=== PATIENT | male | born 1940 | race Caucasian/White ===

== ENCOUNTER 2019-09-05 17:04 | Inpatient (IN) ==
[2019-09-05] MEDS ORDERED: Isovue-370 500 ML BOTTLE IVP ONE (17:16)
[2019-09-05 18:10] LABS: Basophils % 0.2 %; Eosinophils # 0.2 K/mcL (0.0-0.6); Eosinophils % 1.3 %; Hematocrit 40.7 % (37.5-50.1); Hemoglobin 13.6 g/dL (12.9-16.9); Immature Granulocytes % 0.4 % (0-4); Lymphocytes # 1.9 K/mcL (0.6-4.6); Lymphocytes % 15.6 %; Mean Corpuscular HGB Conc 33.4 g/dL (31.6-35.5); Mean Corpuscular Hemoglobin 28.5 pg (28.0-33.3); Mean Corpuscular Volume 85.1 fL (83.0-100.0); Mean Platelet Volume 10.1 fL (9.4-12.4); Monocytes # 1.4 K/mcL (0.0-1.3); Neutrophils # 8.5 K/mcL (1.6-8.9); Platelet Count 231 K/mcL (140-400); Red Blood Count 4.78 M/mcL (4.19-5.50); Red Cell Distribution Width 13.7 % (11.5-14.5); Segmented Neutrophils % 70.5 %
[2019-09-05 18:28] LABS: Alanine Aminotransferase 49 Units/L (7-52); Albumin 3.7 g/dL (3.5-5.7); Albumin/Globulin Ratio 1.2 (1.1-2.2); Alkaline Phosphatase 64 Units/L (34-104); Aspartate Amino Transferase 32 Units/L (13-39); BUN/Creatinine Ratio 24 (6-26); Bilirubin,Total 0.5 mg/dL (0.3-1.0); Blood Urea Nitrogen 36 mg/dL (8-23); Calcium 9.3 mg/dL (8.6-10.3); Carbon Dioxide 23 mEq/L (23-29); Chloride 108 mEq/L (98-107); Globulin 3.1 g/dL (2.4-3.5); Glucose 175 mg/dL (70-105); Osmolality,Calculated 301 (280-300); Potassium 4.4 mEq/L (3.5-5.1); Sodium 139 mEq/L (136-145); Total Protein 6.8 g/dL (6.4-8.9); eGFR For African Americans 55 (> 60); eGFR For Non-African Americans 45 (> 60)
[2019-09-05 18:29] LABS: Troponin I < 0.03 ng/mL (< 0.04)
[2019-09-05 19:18] LABS: Bilirubin,Urine Small (Negative); Blood,Urine Moderate (Negative); Clarity,Urine Clear (Clear); Color,Urine Dark Yellow (Yellow); Glucose,Urine (UA) Normal (Normal); Ketones,Urine Trace mg/dL (Negative); Leukocyte Esterase,Urine Negative (Negative); Nitrite,Urine Negative (Negative); PH,Urine 5.5 pH Units (5.0-8.0); Protein,Urine 30 mg/dL (Neg-Trace); Urobilinogen,Urine Normal (Normal)
[2019-09-05] MEDS ORDERED: 0.9 % Sodium Chloride 1,000 ML IVC ONE (19:22)
[2019-09-05 19:23] LABS: Bacteria,Urine None Seen per hpf (None-Few); Hyaline Casts,Urine None Seen per lpf (None-Few); RBC,Urine 30-50 per hpf (0-3); Squamous Epithelial Cell,Urine None Seen per lpf (None-Few); WBC,Urine 0-3 per hpf (0-3)
[2019-09-05 20:03] LABS: Valproate 13 mcg/mL (50-100)
[2019-09-05] MEDS ORDERED: Valproic Acid INJ 1,000 MG in 0.9 % Sodium Chloride 100 ML IVPB ONE (20:45)
[2019-09-05] MEDS ORDERED: D5% in Water 1,000 ML IVC PRN (21:18)
[2019-09-05] MEDS ORDERED: Dextrose Gel 15 GM/37.5 ML TUBE PO PRN ×2 (21:18)
[2019-09-05] MEDS ORDERED: Ondansetron ODT 4 MG TAB.RAPDIS SL PRN (21:18)
[2019-09-05] MEDS ORDERED: Naloxone 0.4 MG/ML INJ IVP PRN (21:18)
[2019-09-05] MEDS ORDERED: *HR* Dextrose 50 % in Water (Syg) 50 ML SYRINGE IVP PRN (21:18)
[2019-09-05 22:19] LABS: ABG Base Excess -3 mEq/L (-2 to 3); ABG HCO3 25 mEq/L (21-27); ABG Oxygen Saturation 90 % (95-98); ABG PCO2 57 mmHg (35-45); ABG PH 7.25 pH Units (7.32-7.45); ABG PO2 70 mmHg (85-104); ABG TCO2 27 mEq/L (20-26)
[2019-09-06] MEDS ORDERED: Insulin LISPRO 300 UNITS/3 ML VIAL SQ SCH
[2019-09-06 02:37] LABS: Basophils % 0.3 %; Eosinophils # 0.2 K/mcL (0.0-0.6); Eosinophils % 1.3 %; Hematocrit 38.8 % (37.5-50.1); Hemoglobin 12.4 g/dL (12.9-16.9); Immature Granulocytes % 0.5 % (0-4); Lymphocytes # 1.5 K/mcL (0.6-4.6); Lymphocytes % 13.3 %; Mean Corpuscular Hemoglobin 28.2 pg (28.0-33.3); Mean Corpuscular Volume 88.4 fL (83.0-100.0); Mean Platelet Volume 10.1 fL (9.4-12.4); Monocytes # 1.2 K/mcL (0.0-1.3); Monocytes % 10.5 %; Neutrophils # 8.6 K/mcL (1.6-8.9); Platelet Count 227 K/mcL (140-400); Red Blood Count 4.39 M/mcL (4.19-5.50); Red Cell Distribution Width 13.9 % (11.5-14.5); Segmented Neutrophils % 74.1 %; White Blood Count 11.5 K/mcL (4.3-11.1)
[2019-09-06 02:44] LABS: INR 1.2; Prothrombin Time 13.2 Seconds (9.4-12.1)
[2019-09-06 03:01] LABS: Alanine Aminotransferase 42 Units/L (7-52); Albumin 3.4 g/dL (3.5-5.7); Albumin/Globulin Ratio 1.2 (1.1-2.2); Alkaline Phosphatase 55 Units/L (34-104); Aspartate Amino Transferase 22 Units/L (13-39); BUN/Creatinine Ratio 24 (6-26); Bilirubin,Total 0.5 mg/dL (0.3-1.0); Blood Urea Nitrogen 32 mg/dL (8-23); Calcium 9.2 mg/dL (8.6-10.3); Carbon Dioxide 22 mEq/L (23-29); Chloride 110 mEq/L (98-107); Chol/HDL Ratio 3.1 (0-4.9); Cholesterol 92 mg/dL (< 200); Ethanol < 10 mg/dL (Less than 10); Globulin 2.9 g/dL (2.4-3.5); Glucose 158 mg/dL (70-105); HDL Cholesterol 30 mg/dL (40-59); LDL Cholesterol,Calculated 44 mg/dL (0-99); Magnesium 1.9 mg/dL (1.6-2.6); Osmolality,Calculated 304 (280-300); Phosphorous 3.5 mg/dL (2.7-4.5); Potassium 4.7 mEq/L (3.5-5.1); Sodium 142 mEq/L (136-145); Total Protein 6.3 g/dL (6.4-8.9); Triglycerides 89 mg/dL (< 150); Troponin I < 0.03 ng/mL (< 0.04); eGFR For African Americans > 60 (> 60); eGFR For Non-African Americans 53 (> 60)
[2019-09-06 03:05] LABS: Bilirubin,Urine Moderate (Negative); Blood,Urine Large (Negative); Clarity,Urine Cloudy (Clear); Color,Urine Red (Yellow); Glucose,Urine (UA) Normal (Normal); Ketones,Urine Trace mg/dL (Negative); Leukocyte Esterase,Urine Small (Negative); Nitrite,Urine Negative (Negative); PH,Urine 5.5 pH Units (5.0-8.0); Protein,Urine 100 mg/dL (Neg-Trace); Specific Gravity,Urine 1.021 (1.010-1.025); Urobilinogen,Urine Normal (Normal)
[2019-09-06] MEDS: Ipratropium/Albuterol Neb 3 ML IH SCH ×5 (03:07→22:11)
[2019-09-06 03:12] LABS: Thyroid Stimulating Hormone 0.525 mcIU/mL (0.340-5.600)
[2019-09-06 03:13] LABS: Bacteria,Urine None Seen per hpf (None-Few); Hyaline Casts,Urine None Seen per lpf (None-Few); RBC,Urine TNTC per hpf (0-3); Squamous Epithelial Cell,Urine Many per lpf (None-Few); WBC,Urine 15-30 per hpf (0-3)
[2019-09-06 03:13] LABS: Sodium, Urine 36.6 mEq/L
[2019-09-06 03:29] LABS: Amphetamine Screen,Urine Negative ng/mL (Cutoff=1000); Barbiturate Screen,Urine Negative ng/mL (Cutoff=200); Benzodiazepines Screen,Urine Negative ng/mL (Cutoff=200); Cannabinoid Screen,Urine Negative ng/mL (Cutoff = 50); Cocaine Screen,Urine Negative ng/mL (Cutoff= 300); Opiate Screen,Urine Positive ng/mL (Cutoff=300); Phencyclidine Screen,Urine Negative ng/mL (Cutoff=25)
[2019-09-06 04:42] LABS: Creatine Kinase 253 Units/L (30-223)
[2019-09-06 05:07] LABS: Adenovirus Not Detected (Not Detect); Coronavirus 229E Not Detected (Not Detect); Coronavirus HKU1 Not Detected (Not Detect); Coronavirus NL63 Not Detected (Not Detect); Coronavirus OC43 Not Detected (Not Detect); Human Metapneumovirus Not Detected (Not Detect); Human Rhinovirus/Enterovirus Not Detected (Not Detect); Influenza A Subtype 2009 H1 Not Detected (Not Detect); Influenza A Untypeable Not Detected (Not Detect); Influenza B Not Detected (Not Detect); Parainfluenza Virus 1 Not Detected (Not Detect); Parainfluenza Virus 2 Not Detected (Not Detect); Parainfluenza Virus 3 Not Detected (Not Detect); Parainfluenza Virus 4 Not Detected (Not Detect); Respiratory Syncytial Virus Not Detected (Not Detect)
[2019-09-06 05:08] LABS: Bordetella Pertussis Not Detected (Not Detect); Chlamydophila pneumoniae Not Detected (Not Detect); Mycoplasma pneumoniae Not Detected (Not Detect)
[2019-09-06] MEDS: Divalproex (12 HR) 500 MG TABLET PO SCH (20:45)
[2019-09-06] MEDS: Insulin LISPRO 300 UNITS/3 ML VIAL SQ SCH (20:46)
[2019-09-07 03:23] LABS: Hematocrit 36.1 % (37.5-50.1); Hemoglobin 11.8 g/dL (12.9-16.9); Mean Corpuscular HGB Conc 32.7 g/dL (31.6-35.5); Mean Corpuscular Hemoglobin 28.6 pg (28.0-33.3); Mean Corpuscular Volume 87.6 fL (83.0-100.0); Mean Platelet Volume 10.3 fL (9.4-12.4); Platelet Count 233 K/mcL (140-400); Red Blood Count 4.12 M/mcL (4.19-5.50); Red Cell Distribution Width 13.6 % (11.5-14.5); White Blood Count 10.4 K/mcL (4.3-11.1)
[2019-09-07 03:33] LABS: INR 1.3; Prothrombin Time 14.5 Seconds (9.4-12.1)
[2019-09-07 03:43] LABS: BUN/Creatinine Ratio 29 (6-26); Blood Urea Nitrogen 26 mg/dL (8-23); Calcium 9.3 mg/dL (8.6-10.3); Carbon Dioxide 21 mEq/L (23-29); Chloride 113 mEq/L (98-107); Glucose 170 mg/dL (70-105); Osmolality,Calculated 309 (280-300); Potassium 4.2 mEq/L (3.5-5.1); Sodium 145 mEq/L (136-145); eGFR For African Americans > 60 (> 60); eGFR For Non-African Americans > 60 (> 60)
[2019-09-07] MEDS: Ipratropium/Albuterol Neb 3 ML IH SCH ×5 (04:18→21:40)
[2019-09-07 08:12] LABS: Estimated Average Glucose 177 mg/dl
[2019-09-07] MEDS: Insulin LISPRO 300 UNITS/3 ML VIAL SQ SCH ×4 (08:20→20:53)
[2019-09-07] MEDS ORDERED: Aspirin Enteric Coated 81 MG Tablet PO SCH ×2 (09:00)
[2019-09-07] MEDS ORDERED: Isovue-370 500 ML BOTTLE IVP ONE (14:18)
[2019-09-07 14:38] LABS: VBG HCO3 24 mEq/L (21-27); VBG PCO2 33 mmHg (41-51); VBG PH 7.47 pH Units (7.32-7.42); VBG PO2 214 mmHg (25-50)
[2019-09-07] MEDS ORDERED: cefTRIAXone 2,000 MG in Water for inj. (sterile) 20 ML IVP ONE (15:18)
[2019-09-07] MEDS: Finasteride 5 MG TABLET PO SCH (17:22)
[2019-09-07] MEDS ORDERED: Ringers Solution, Lactated 1,000 ML IVC ONE (18:24)
[2019-09-07] MEDS: Divalproex (12 HR) 500 MG TABLET PO SCH (20:53)
[2019-09-08 02:30] LABS: Hematocrit 34.8 % (37.5-50.1); Hemoglobin 11.9 g/dL (12.9-16.9); Mean Corpuscular HGB Conc 34.2 g/dL (31.6-35.5); Mean Corpuscular Volume 84.7 fL (83.0-100.0); Platelet Count 234 K/mcL (140-400); Red Blood Count 4.11 M/mcL (4.19-5.50); Red Cell Distribution Width 13.5 % (11.5-14.5); White Blood Count 9.6 K/mcL (4.3-11.1)
[2019-09-08 02:37] LABS: INR 1.3; Prothrombin Time 14.5 Seconds (9.4-12.1)
[2019-09-08 02:50] LABS: BUN/Creatinine Ratio 29 (6-26); Blood Urea Nitrogen 24 mg/dL (8-23); Calcium 9.1 mg/dL (8.6-10.3); Carbon Dioxide 20 mEq/L (23-29); Chloride 115 mEq/L (98-107); Glucose 187 mg/dL (70-105); Osmolality,Calculated 307 (280-300); Sodium 144 mEq/L (136-145); eGFR For African Americans > 60 (> 60); eGFR For Non-African Americans > 60 (> 60)
[2019-09-08] MEDS: Ipratropium/Albuterol Neb 3 ML IH SCH ×4 (03:47→21:51)
[2019-09-08] MEDS ORDERED: cefTRIAXone 2,000 MG in Water for inj. (sterile) 20 ML IVP ONE (07:22)
[2019-09-08] MEDS: Insulin LISPRO 300 UNITS/3 ML VIAL SQ SCH ×4 (07:54→20:59)
[2019-09-08 08:40] LABS: Bilirubin,Urine Negative (Negative); Blood,Urine Large (Negative); Clarity,Urine Clear (Clear); Color,Urine Yellow (Yellow); Glucose,Urine (UA) 250 mg/dL (Normal); Ketones,Urine Trace mg/dL (Negative); Leukocyte Esterase,Urine Negative (Negative); Nitrite,Urine Negative (Negative); Protein,Urine 30 mg/dL (Neg-Trace); Specific Gravity,Urine > 1.030 (1.010-1.025); Urobilinogen,Urine Normal (Normal)
[2019-09-08 08:43] LABS: Bacteria,Urine None Seen per hpf (None-Few); Hyaline Casts,Urine None Seen per lpf (None-Few); RBC,Urine TNTC per hpf (0-3); Squamous Epithelial Cell,Urine Few per lpf (None-Few); WBC,Urine 0-3 per hpf (0-3)
[2019-09-08] MEDS: Finasteride 5 MG TABLET PO SCH (17:41)
[2019-09-08] MEDS: Sulfamethoxazole/Trimeth 10 ML in D5% in Water 500 ML IVPB SCH (18:46)
[2019-09-08] MEDS: Divalproex (12 HR) 500 MG TABLET PO SCH (20:58)
[2019-09-09] MEDS: Ipratropium/Albuterol Neb 3 ML IH SCH ×4 (03:28→21:46)
[2019-09-09 04:34] LABS: Hematocrit 32.9 % (37.5-50.1); Hemoglobin 10.8 g/dL (12.9-16.9); Mean Corpuscular HGB Conc 32.8 g/dL (31.6-35.5); Mean Corpuscular Hemoglobin 28.2 pg (28.0-33.3); Mean Corpuscular Volume 85.9 fL (83.0-100.0); Mean Platelet Volume 9.9 fL (9.4-12.4); Platelet Count 249 K/mcL (140-400); Red Blood Count 3.83 M/mcL (4.19-5.50); Red Cell Distribution Width 13.2 % (11.5-14.5); White Blood Count 9.4 K/mcL (4.3-11.1)
[2019-09-09 04:56] LABS: BUN/Creatinine Ratio 25 (6-26); Blood Urea Nitrogen 25 mg/dL (8-23); Calcium 8.7 mg/dL (8.6-10.3); Carbon Dioxide 21 mEq/L (23-29); Chloride 107 mEq/L (98-107); Glucose 193 mg/dL (70-105); Osmolality,Calculated 296 (280-300); Potassium 3.7 mEq/L (3.5-5.1); Sodium 138 mEq/L (136-145); eGFR For African Americans > 60 (> 60); eGFR For Non-African Americans > 60 (> 60)
[2019-09-09] MEDS: Insulin LISPRO 300 UNITS/3 ML VIAL SQ SCH ×4 (09:22→21:00)
[2019-09-09] MEDS: Sulfamethoxazole/Trimeth 10 ML in D5% in Water 500 ML IVPB SCH (09:22)
[2019-09-09] MEDS: Lisinopril 20 MG TABLET PO SCH (09:23)
[2019-09-09] MEDS ORDERED: methylPREDNISolone 125 MG/2 ML VIAL IVP ONE (12:02)
[2019-09-09] MEDS: cefTRIAXone 2,000 MG in 0.9 % Sodium Chloride Mini Bag 100 ML IVPB SCH (12:23)
[2019-09-09] MEDS: Finasteride 5 MG TABLET PO SCH (17:16)
[2019-09-09] MEDS: Divalproex (12 HR) 500 MG TABLET PO SCH (20:51)
[2019-09-10] MEDS: Ipratropium/Albuterol Neb 3 ML IH SCH ×4 (03:43→22:28)
[2019-09-10] MEDS: Insulin LISPRO 300 UNITS/3 ML VIAL SQ SCH ×5 (08:42→22:08)
[2019-09-10] MEDS: Lisinopril 20 MG TABLET PO SCH (08:42)
[2019-09-10] MEDS: cefTRIAXone 2,000 MG in 0.9 % Sodium Chloride Mini Bag 100 ML IVPB SCH (13:51)
[2019-09-10] MEDS: Finasteride 5 MG TABLET PO SCH (18:43)
[2019-09-10] MEDS: Divalproex (12 HR) 500 MG TABLET PO SCH (20:57)
[2019-09-11] MEDS: Ipratropium/Albuterol Neb 3 ML IH SCH ×2 (04:19→11:02)
[2019-09-11] MEDS: Insulin LISPRO 300 UNITS/3 ML VIAL SQ SCH ×4 (07:38→11:35)
[2019-09-11] MEDS: Lisinopril 20 MG TABLET PO SCH (07:38)
[2019-09-11] MEDS ORDERED: Furosemide 20 MG/2 ML VIAL IVP ONE (08:39)
[2019-09-11] MEDS ORDERED: Aspirin 81 MG TAB.CHEW PO SCH (09:00)
[2019-09-11 11:23] VITALS: BP 148/85
[2019-09-11] MEDS ORDERED: Sulfamethoxazole/Trimeth DS 1 EACH TABLET PO SCH (13:30)
[2019-09-11 15:16] LABS: Purkinje Cell/ANNA IgG Scrn NONE DETECTED (None Detected)
== END 2019-09-11 14:31 | disposition other institution (70) | DRG 70 ==
LOC: 2NENU 17:04 → EMEROOARM 17:04 → 2NENU 23:00
PROVIDERS: ADMIT Family Medicine; ATTEND Family Medicine

== ENCOUNTER 2022-01-17 06:06 | Inpatient (IN) ==
[2022-01-17] MEDS ORDERED: Famotidine 20 MG/2 ML VIAL IVP ONE (06:24)
[2022-01-17] MEDS ORDERED: Acetaminophen IV 1,000 MG/100 ML BAG IVPB ONE (06:24)
[2022-01-17] MEDS ORDERED: Celecoxib 200 MG CAPSULE PO ONE (06:24)
[2022-01-17] MEDS ORDERED: *HR* FentaNYL (PF) 100 MCG/2 ML VIAL ONE (06:44)
[2022-01-17] MEDS ORDERED: Ondansetron 4 MG/2 ML VIAL ONE (06:44)
[2022-01-17] MEDS ORDERED: Tranexamic Acid 1,000 MG/10 ML VIAL ONE ×2 (06:46→09:36)
[2022-01-17] MEDS ORDERED: Lidocaine -MPF 2% 5 ML VIAL ONE (06:47)
[2022-01-17] MEDS ORDERED: Ketamine HCL *QUVA* 50mg (1mL) SYRINGE ONE (06:50)
[2022-01-17] MEDS ORDERED: Vancomycin 1,000 MG VIAL ONE (06:57)
[2022-01-17] MEDS ORDERED: CeFAZolin Syr 2,000MG/20 ML 2,000 MG/20 ML SYRINGE IVPB ONE (07:01)
[2022-01-17] MEDS ORDERED: Ringers Solution, Lactated 1,000 ML IVC SCH (07:15)
[2022-01-17] MEDS ORDERED: Povidone-Iodine 45 ML, Sodium Chloride IRRigation 1,000 ML IR ONE (07:30)
[2022-01-17] MEDS ORDERED: TOTAL JOINT MIXTURE (100ML) INTRAART ONE (07:30)
[2022-01-17] MEDS ORDERED: *HR* Labetalol 20 MG/4 ML SYRINGE IVP ONE (09:36)
[2022-01-17] MEDS ORDERED: Sennosides 8.6 MG TABLET PO PRN (10:51)
[2022-01-17] MEDS ORDERED: Dextrose 4 GM Chewable Tablets PO PRN ×2 (10:51)
[2022-01-17] MEDS ORDERED: Naloxone 0.4 MG/ML INJ IVP PRN (10:51)
[2022-01-17] MEDS ORDERED: *HR* Promethazine 25 MG/ML VIAL IM PRN (10:51)
[2022-01-17] MEDS ORDERED: MOM Conc 10 ML UD.LIQ PO PRN (10:51)
[2022-01-17] MEDS ORDERED: D5% in Water 1,000 ML IVC PRN (10:51)
[2022-01-17] MEDS ORDERED: *HR* Dextrose 50 % in Water (Syg) 50 ML SYRINGE IVP PRN (10:51)
[2022-01-17] MEDS: *HR* OxyCODONE Immed Rel 5 MG TABLET PO PRN ×2 (12:52→21:40)
[2022-01-17] MEDS: Insulin LISPRO 300 UNITS/3 ML VIAL SUBQ SCH ×2 (12:55→17:09)
[2022-01-17] MEDS: Ringers Solution, Lactated 1,000 ML IVC SCH (12:57)
[2022-01-17] MEDS ORDERED: Artificial Tears SOLN 15 ML BOTTLE BOTH EYES PRN (15:09)
[2022-01-17] MEDS ORDERED: CEFAZOLIN 2 GM/100 ML IVPB SCH (16:00)
[2022-01-17] MEDS: CeFAZolin 2 GM/100 ML BAG IVPB SCH (16:06)
[2022-01-17] MEDS: *HR* Metformin 500 MG TABLET PO SCH (16:07)
[2022-01-17] MEDS: Ascorbic Acid 500 MG TABLET PO SCH (16:07)
[2022-01-17] MEDS: Finasteride 5 MG TABLET PO SCH (17:08)
[2022-01-17] MEDS: Divalproex (24 HR) 500 MG TABLET PO SCH (21:39)
[2022-01-17] MEDS: Insulin DETEMIR 100 UNIT/ML X5UNITS SUBQ SCH (21:40)
[2022-01-18] MEDS: Ringers Solution, Lactated 1,000 ML IVC SCH ×2 (00:44→18:15)
[2022-01-18] MEDS: CeFAZolin 2 GM/100 ML BAG IVPB SCH (00:47)
[2022-01-18 05:29] LABS: Basophils % 0.3 %; Eosinophils # 0.1 K/mcL (0.0-0.6); Hematocrit 30.5 % (37.5-50.1); Hemoglobin 10.1 g/dL (12.9-16.9); Immature Granulocytes % 0.4 % (0-4); Lymphocytes # 3.4 K/mcL (0.6-4.6); Lymphocytes % 23.1 %; Mean Corpuscular HGB Conc 33.1 g/dL (31.6-35.5); Mean Corpuscular Hemoglobin 28.9 pg (28.0-33.3); Mean Corpuscular Volume 87.1 fL (83.0-100.0); Mean Platelet Volume 10.1 fL (9.4-12.4); Monocytes # 1.5 K/mcL (0.0-1.3); Monocytes % 10.4 %; Neutrophils # 9.5 K/mcL (1.6-8.9); Platelet Count 180 K/mcL (140-400); Red Cell Distribution Width 13.1 % (11.5-14.5); Segmented Neutrophils % 64.8 %; White Blood Count 14.7 K/mcL (4.3-11.1)
[2022-01-18 05:52] LABS: BUN/Creatinine Ratio 17 (6-26); Blood Urea Nitrogen 23 mg/dL (8-23); Calcium 8.2 mg/dL (8.6-10.3); Carbon Dioxide 28 mEq/L (23-29); Chloride 104 mEq/L (98-107); Glucose 147 mg/dL (70-105); Osmolality,Calculated 296 (280-300); Potassium 4.1 mEq/L (3.5-5.1); Sodium 140 mEq/L (136-145); eGFR For African Americans > 60 (> 60); eGFR For Non-African Americans 50 (> 60)
[2022-01-18] MEDS: *HR* OxyCODONE Immed Rel 5 MG TABLET PO PRN ×2 (06:07→20:01)
[2022-01-18] MEDS ORDERED: LUTEIN PO SCH (09:00)
[2022-01-18] MEDS ORDERED: Celecoxib 200 MG CAPSULE PO SCH (09:00)
[2022-01-18] MEDS ORDERED: VIT C PO SCH (09:00)
[2022-01-18] MEDS ORDERED: OMEGA PO SCH (09:00)
[2022-01-18] MEDS ORDERED: VIT E PO SCH (09:00)
[2022-01-18] MEDS: lisinopriL 20 MG TABLET PO SCH (09:33)
[2022-01-18] MEDS: Multivit/Ca/Min/Fe/FA 1 TAB TABLET PO SCH (09:33)
[2022-01-18] MEDS: Ascorbic Acid 500 MG TABLET PO SCH ×2 (09:33→15:08)
[2022-01-18] MEDS: *HR* SitaGLIPtin 100 MG TABLET PO SCH (09:33)
[2022-01-18] MEDS: *HR* Metformin 500 MG TABLET PO SCH (09:33)
[2022-01-18] MEDS: Insulin LISPRO 300 UNITS/3 ML VIAL SUBQ SCH ×3 (09:34→18:13)
[2022-01-18] MEDS: Aspirin Enteric Coated 81 MG Tablet PO SCH ×2 (18:09→20:01)
[2022-01-18] MEDS: Finasteride 5 MG TABLET PO SCH (18:12)
[2022-01-18] MEDS: Divalproex (24 HR) 500 MG TABLET PO SCH (20:01)
[2022-01-18] MEDS: Insulin DETEMIR 100 UNIT/ML X5UNITS SUBQ SCH (20:04)
[2022-01-19] MEDS: *HR* OxyCODONE Immed Rel 5 MG TABLET PO PRN ×2 (04:48→19:36)
[2022-01-19 05:07] LABS: Basophils % 0.2 %; Eosinophils # 0.3 K/mcL (0.0-0.6); Eosinophils % 2.4 %; Hematocrit 29.5 % (37.5-50.1); Hemoglobin 9.9 g/dL (12.9-16.9); Immature Granulocytes % 0.4 % (0-4); Lymphocytes # 2.7 K/mcL (0.6-4.6); Lymphocytes % 21.2 %; Mean Corpuscular HGB Conc 33.6 g/dL (31.6-35.5); Mean Corpuscular Hemoglobin 28.9 pg (28.0-33.3); Mean Corpuscular Volume 86.3 fL (83.0-100.0); Mean Platelet Volume 10.6 fL (9.4-12.4); Monocytes # 1.3 K/mcL (0.0-1.3); Monocytes % 9.8 %; Neutrophils # 8.5 K/mcL (1.6-8.9); Platelet Count 176 K/mcL (140-400); Red Blood Count 3.42 M/mcL (4.19-5.50); Red Cell Distribution Width 13.2 % (11.5-14.5); White Blood Count 12.9 K/mcL (4.3-11.1)
[2022-01-19 05:21] LABS: BUN/Creatinine Ratio 20 (6-26); Blood Urea Nitrogen 23 mg/dL (8-23); Calcium 8.1 mg/dL (8.6-10.3); Carbon Dioxide 25 mEq/L (23-29); Chloride 104 mEq/L (98-107); Glucose 185 mg/dL (70-105); Osmolality,Calculated 296 (280-300); Potassium 3.6 mEq/L (3.5-5.1); Sodium 139 mEq/L (136-145); eGFR For African Americans > 60 (> 60); eGFR For Non-African Americans > 60 (> 60)
[2022-01-19] MEDS: lisinopriL 20 MG TABLET PO SCH (09:28)
[2022-01-19] MEDS: Insulin LISPRO 300 UNITS/3 ML VIAL SUBQ SCH ×4 (09:29→19:49)
[2022-01-19] MEDS: Ascorbic Acid 500 MG TABLET PO SCH ×2 (09:29→14:34)
[2022-01-19] MEDS: *HR* SitaGLIPtin 100 MG TABLET PO SCH (09:29)
[2022-01-19] MEDS: Multivit/Ca/Min/Fe/FA 1 TAB TABLET PO SCH (09:29)
[2022-01-19] MEDS: Aspirin Enteric Coated 81 MG Tablet PO SCH ×2 (09:29→19:36)
[2022-01-19] MEDS ORDERED: Furosemide 20 MG/2 ML VIAL IVP ONE (13:03)
[2022-01-19] MEDS: Finasteride 5 MG TABLET PO SCH (14:34)
[2022-01-19] MEDS: Divalproex (24 HR) 500 MG TABLET PO SCH (19:36)
[2022-01-19] MEDS: Insulin DETEMIR 100 UNIT/ML X5UNITS SUBQ SCH (19:43)
[2022-01-20 07:30] VITALS: O2SAT 96
[2022-01-20] MEDS: lisinopriL 20 MG TABLET PO SCH (08:22)
[2022-01-20] MEDS: Aspirin Enteric Coated 81 MG Tablet PO SCH ×2 (08:22→20:42)
[2022-01-20] MEDS: Multivit/Ca/Min/Fe/FA 1 TAB TABLET PO SCH (08:22)
[2022-01-20] MEDS: Insulin LISPRO 300 UNITS/3 ML VIAL SUBQ SCH ×4 (08:23→20:43)
[2022-01-20] MEDS: Ascorbic Acid 500 MG TABLET PO SCH ×2 (08:23→17:47)
[2022-01-20] MEDS ORDERED: Furosemide 40 MG TABLET PO SCH (09:00)
[2022-01-20] MEDS: Finasteride 5 MG TABLET PO SCH (17:47)
[2022-01-20 19:38] LABS: Adenovirus Not Detected (Not Detect); Bordetella Pertussis Not Detected (Not Detect); Chlamydophila pneumoniae Not Detected (Not Detect); Coronavirus 229E Not Detected (Not Detect); Coronavirus HKU1 Not Detected (Not Detect); Coronavirus NL63 Not Detected (Not Detect); Coronavirus OC43 Not Detected (Not Detect); Human Metapneumovirus Not Detected (Not Detect); Human Rhinovirus/Enterovirus Not Detected (Not Detect); Influenza A Subtype 2009 H1 Not Detected (Not Detect); Influenza B Not Detected (Not Detect); Mycoplasma pneumoniae Not Detected (Not Detect); Parainfluenza Virus 1 Not Detected (Not Detect); Parainfluenza Virus 2 Not Detected (Not Detect); Parainfluenza Virus 3 Not Detected (Not Detect); Parainfluenza Virus 4 Not Detected (Not Detect); Respiratory Syncytial Virus Not Detected (Not Detect); SARS-CoV-2 Not Detected (Not Detect)
[2022-01-20] MEDS: Divalproex (24 HR) 500 MG TABLET PO SCH (20:42)
[2022-01-20] MEDS: Insulin DETEMIR 100 UNIT/ML X5UNITS SUBQ SCH (20:47)
[2022-01-21 04:48] LABS: Basophils % 0.1 %; Eosinophils # 0.4 K/mcL (0.0-0.6); Eosinophils % 4.3 %; Hematocrit 26.3 % (37.5-50.1); Hemoglobin 8.8 g/dL (12.9-16.9); Immature Granulocytes % 0.5 % (0-4); Lymphocytes # 2.4 K/mcL (0.6-4.6); Lymphocytes % 26.2 %; Mean Corpuscular HGB Conc 33.5 g/dL (31.6-35.5); Mean Corpuscular Hemoglobin 28.3 pg (28.0-33.3); Mean Corpuscular Volume 84.6 fL (83.0-100.0); Monocytes # 0.9 K/mcL (0.0-1.3); Monocytes % 9.2 %; Neutrophils # 5.5 K/mcL (1.6-8.9); Platelet Count 193 K/mcL (140-400); Red Blood Count 3.11 M/mcL (4.19-5.50); Segmented Neutrophils % 59.7 %; White Blood Count 9.3 K/mcL (4.3-11.1)
[2022-01-21 05:04] LABS: BUN/Creatinine Ratio 22 (6-26); Blood Urea Nitrogen 22 mg/dL (8-23); Calcium 7.9 mg/dL (8.6-10.3); Carbon Dioxide 25 mEq/L (23-29); Chloride 110 mEq/L (98-107); Glucose 133 mg/dL (70-105); Magnesium 1.3 mg/dL (1.6-2.6); Osmolality,Calculated 299 (280-300); Phosphorous 3.3 mg/dL (2.7-4.5); Potassium 3.5 mEq/L (3.5-5.1); Sodium 142 mEq/L (136-145); eGFR For African Americans > 60 (> 60); eGFR For Non-African Americans > 60 (> 60)
[2022-01-21 07:05] VITALS: BP 142/78; PULSE 75; TEMP 97.7
[2022-01-21] MEDS: Insulin LISPRO 300 UNITS/3 ML VIAL SUBQ SCH (09:48)
[2022-01-21] MEDS: Aspirin Enteric Coated 81 MG Tablet PO SCH (10:38)
[2022-01-21] MEDS: Multivit/Ca/Min/Fe/FA 1 TAB TABLET PO SCH (10:38)
[2022-01-21] MEDS: Ascorbic Acid 500 MG TABLET PO SCH (10:38)
[2022-01-21] MEDS: lisinopriL 20 MG TABLET PO SCH (10:38)
[2022-01-21] MEDS: *HR* OxyCODONE Immed Rel 5 MG TABLET PO PRN (10:44)
[2022-01-21] MEDS ORDERED: Furosemide 40 MG/4 ML VIAL IVP SCH (21:00)
== END 2022-01-21 12:06 | DRG 469 ==
LOC: SDCAOSI 06:06 → 4WAOSI 11:15 → SUATTDRO 22:24
PROVIDERS: ADMIT Orthopaedic Surgery; ATTEND Internal Medicine

== ENCOUNTER 2022-04-21 22:01 | Inpatient (IN) ==
[2022-04-21 22:42] LABS: Basophils % 0.1 %; Eosinophils # 0.1 K/mcL (0.0-0.6); Eosinophils % 0.6 %; Hematocrit 32.8 % (37.5-50.1); Hemoglobin 10.8 g/dL (12.9-16.9); Immature Granulocytes % 0.3 % (0-4); Lymphocytes # 2.9 K/mcL (0.6-4.6); Lymphocytes % 20.3 %; Mean Corpuscular HGB Conc 32.9 g/dL (31.6-35.5); Mean Corpuscular Hemoglobin 28.3 pg (28.0-33.3); Mean Corpuscular Volume 85.9 fL (83.0-100.0); Mean Platelet Volume 9.7 fL (9.4-12.4); Monocytes # 1.4 K/mcL (0.0-1.3); Monocytes % 9.7 %; Neutrophils # 9.8 K/mcL (1.6-8.9); Platelet Count 229 K/mcL (140-400); Red Blood Count 3.82 M/mcL (4.19-5.50); Red Cell Distribution Width 12.8 % (11.5-14.5); White Blood Count 14.3 K/mcL (4.3-11.1)
[2022-04-21 22:51] LABS: INR 1.2; Prothrombin Time 13.3 Seconds (9.4-12.1)
[2022-04-21 22:54] LABS: Activated Partial Thrombo Time 36.7 Seconds (26.0-36.0)
[2022-04-21 23:03] LABS: Alanine Aminotransferase 8 Units/L (7-52); Albumin 3.4 g/dL (3.5-5.7); Albumin/Globulin Ratio 1.1 (1.1-2.2); Alkaline Phosphatase 45 Units/L (34-104); Aspartate Amino Transferase 10 Units/L (13-39); BUN/Creatinine Ratio 14 (6-26); Bilirubin,Indirect 0.3 mg/dL (0.0-1.0); Bilirubin,Total 0.3 mg/dL (0.3-1.0); Blood Urea Nitrogen 18 mg/dL (8-23); C-Reactive Protein 12 mg/L (Less than 10); Calcium 8.7 mg/dL (8.6-10.3); Carbon Dioxide 24 mEq/L (23-29); Chloride 105 mEq/L (98-107); Creatine Kinase 45 Units/L (30-223); Ethanol < 10 mg/dL (Less than 10); Globulin 3.1 g/dL (2.4-3.5); Glucose 179 mg/dL (70-105); Osmolality,Calculated 292 (280-300); Sodium 138 mEq/L (136-145); Total Protein 6.5 g/dL (6.4-8.9); eGFR For African Americans > 60 (> 60); eGFR For Non-African Americans 52 (> 60)
[2022-04-21 23:04] LABS: Troponin I < 0.03 ng/mL (< 0.04)
[2022-04-21] MEDS ORDERED: Aspirin 325 MG TABLET PO ONE (23:16)
[2022-04-21] MEDS ORDERED: Azithromycin 500 MG in 0.9 % Sodium Chloride 250 ML IVPB ONE (23:40)
[2022-04-21] MEDS ORDERED: Melatonin 3 MG TABLET PO PRN (23:50)
[2022-04-21] MEDS ORDERED: Ondansetron ODT 4 MG TAB.RAPDIS SL PRN (23:50)
[2022-04-21] MEDS ORDERED: Naloxone 0.4 MG/ML INJ IVP PRN (23:50)
[2022-04-21 23:54] LABS: Amphetamine Screen,Urine Negative ng/mL (Cutoff=1000); Barbiturate Screen,Urine Negative ng/mL (Cutoff=200); Benzodiazepines Screen,Urine Negative ng/mL (Cutoff=200); Cannabinoid Screen,Urine Negative ng/mL (Cutoff = 50); Cocaine Screen,Urine Negative ng/mL (Cutoff= 300); Opiate Screen,Urine Negative ng/mL (Cutoff=300); Phencyclidine Screen,Urine Negative ng/mL (Cutoff=25)
[2022-04-21 23:56] LABS: Bilirubin,Urine Negative (Negative); Blood,Urine Moderate (Negative); Clarity,Urine Clear (Clear); Color,Urine Yellow (Yellow); Glucose,Urine (UA) 30 mg/dL (Normal); Hyaline Casts,Urine Few per lpf (None Seen); Ketones,Urine Negative (Negative); Leukocyte Esterase,Urine Negative (Negative); Mucus,Urine Few per lpf (None-Few); Nitrite,Urine Negative (Negative); Protein,Urine >=600 mg/dL (Neg-Trace); Specific Gravity,Urine 1.024 (1.010-1.025); Urobilinogen,Urine Normal (Normal)
[2022-04-22] MEDS ORDERED: Dextrose Gel 15 GM/37.5 ML TUBE PO PRN ×2 (00:04)
[2022-04-22] MEDS ORDERED: D5% in Water 1,000 ML IVC PRN (00:04)
[2022-04-22] MEDS ORDERED: *HR* Dextrose 50 % in Water (Syg) 50 ML SYRINGE IVP PRN (00:04)
[2022-04-22] MEDS ORDERED: 0.9 % Sodium Chloride 1,000 ML IVC SCH (00:45)
[2022-04-22] MEDS ORDERED: Perflutren Lipid Microsphere 1.3 ML in 0.9 % Sodium Chloride 8.7 ML IVP PRN (01:30)
[2022-04-22] MEDS: Divalproex (12 HR) 500 MG TABLET PO SCH ×2 (02:29→22:26)
[2022-04-22 08:58] LABS: Basophils % 0.3 %; Eosinophils # 0.1 K/mcL (0.0-0.6); Eosinophils % 1.2 %; Hematocrit 31.4 % (37.5-50.1); Hemoglobin 10.1 g/dL (12.9-16.9); Immature Granulocytes % 0.4 % (0-4); Lymphocytes # 3.3 K/mcL (0.6-4.6); Lymphocytes % 28.9 %; Mean Corpuscular HGB Conc 32.2 g/dL (31.6-35.5); Mean Corpuscular Hemoglobin 28.1 pg (28.0-33.3); Mean Corpuscular Volume 87.5 fL (83.0-100.0); Mean Platelet Volume 9.9 fL (9.4-12.4); Monocytes # 1.3 K/mcL (0.0-1.3); Monocytes % 11.1 %; Neutrophils # 6.5 K/mcL (1.6-8.9); Platelet Count 177 K/mcL (140-400); Red Blood Count 3.59 M/mcL (4.19-5.50); Red Cell Distribution Width 12.8 % (11.5-14.5); Segmented Neutrophils % 58.1 %; White Blood Count 11.2 K/mcL (4.3-11.1)
[2022-04-22] MEDS: Furosemide 20 MG TABLET PO SCH (09:14)
[2022-04-22] MEDS: Aspirin 81 MG TAB.CHEW PO SCH (09:14)
[2022-04-22 09:20] LABS: BUN/Creatinine Ratio 14 (6-26); Blood Urea Nitrogen 17 mg/dL (8-23); Calcium 8.2 mg/dL (8.6-10.3); Carbon Dioxide 27 mEq/L (23-29); Chloride 106 mEq/L (98-107); Glucose 83 mg/dL (70-105); Magnesium 1.4 mg/dL (1.6-2.6); Osmolality,Calculated 289 (280-300); Phosphorous 3.6 mg/dL (2.7-4.5); Potassium 3.7 mEq/L (3.5-5.1); Sodium 139 mEq/L (136-145); eGFR For African Americans > 60 (> 60); eGFR For Non-African Americans 58 (> 60)
[2022-04-22] MEDS: Insulin LISPRO 300 UNITS/3 ML VIAL SUBQ SCH ×4 (09:21→22:30)
[2022-04-22 10:07] LABS: Estimated Average Glucose 146 mg/dl; Hemoglobin A1C 6.7 %
[2022-04-22] MEDS: lisinopriL 20 MG TABLET PO SCH (10:37)
[2022-04-22] MEDS: *HR* HYDROcodone/Acet 5/325 mg TABLET PO PRN ×2 (15:56→22:26)
[2022-04-22] MEDS ORDERED: Divalproex (12 HR) 500 MG TABLET PO SCH (21:00)
[2022-04-23] MEDS: Insulin LISPRO 300 UNITS/3 ML VIAL SUBQ SCH ×4 (07:39→20:07)
[2022-04-23] MEDS: Clindamycin 600 MG/50 ML 600 MG/50 ML IV.SOLN IVPB SCH ×3 (08:57→23:13)
[2022-04-23] MEDS: Aspirin 81 MG TAB.CHEW PO SCH (08:58)
[2022-04-23] MEDS: lisinopriL 20 MG TABLET PO SCH (08:58)
[2022-04-23] MEDS: Furosemide 20 MG TABLET PO SCH (08:58)
[2022-04-23] MEDS: Divalproex (12 HR) 500 MG TABLET PO SCH (21:02)
[2022-04-24] MEDS: Insulin LISPRO 300 UNITS/3 ML VIAL SUBQ SCH ×4 (07:17→20:34)
[2022-04-24] MEDS: Aspirin 81 MG TAB.CHEW PO SCH (07:34)
[2022-04-24] MEDS: lisinopriL 20 MG TABLET PO SCH (07:35)
[2022-04-24] MEDS: Furosemide 20 MG TABLET PO SCH (07:35)
[2022-04-24] MEDS: Clindamycin 600 MG/50 ML 600 MG/50 ML IV.SOLN IVPB SCH ×3 (07:36→23:24)
[2022-04-24 09:09] LABS: Basophils % 0.2 %; Eosinophils # 0.2 K/mcL (0.0-0.6); Eosinophils % 1.3 %; Hematocrit 34.2 % (37.5-50.1); Hemoglobin 11.2 g/dL (12.9-16.9); Immature Granulocytes % 0.4 % (0-4); Lymphocytes # 2.5 K/mcL (0.6-4.6); Mean Corpuscular HGB Conc 32.7 g/dL (31.6-35.5); Mean Corpuscular Hemoglobin 28.4 pg (28.0-33.3); Mean Corpuscular Volume 86.6 fL (83.0-100.0); Monocytes # 1.4 K/mcL (0.0-1.3); Monocytes % 11.3 %; Neutrophils # 8.5 K/mcL (1.6-8.9); Platelet Count 212 K/mcL (140-400); Red Blood Count 3.95 M/mcL (4.19-5.50); Red Cell Distribution Width 12.8 % (11.5-14.5); Segmented Neutrophils % 66.8 %; White Blood Count 12.7 K/mcL (4.3-11.1)
[2022-04-24 09:46] LABS: Alanine Aminotransferase 6 Units/L (7-52); Albumin 3.2 g/dL (3.5-5.7); Alkaline Phosphatase 41 Units/L (34-104); Aspartate Amino Transferase 8 Units/L (13-39); BUN/Creatinine Ratio 16 (6-26); Bilirubin,Total 0.3 mg/dL (0.3-1.0); Blood Urea Nitrogen 21 mg/dL (8-23); Calcium 8.8 mg/dL (8.6-10.3); Carbon Dioxide 26 mEq/L (23-29); Chloride 106 mEq/L (98-107); Globulin 3.2 g/dL (2.4-3.5); Glucose 165 mg/dL (70-105); Osmolality,Calculated 295 (280-300); Sodium 139 mEq/L (136-145); Total Protein 6.4 g/dL (6.4-8.9); eGFR For African Americans > 60 (> 60); eGFR For Non-African Americans 53 (> 60)
[2022-04-24] MEDS: Divalproex (12 HR) 500 MG TABLET PO SCH (20:32)
[2022-04-25 05:47] LABS: Basophils % 0.2 %; Eosinophils # 0.1 K/mcL (0.0-0.6); Hematocrit 33.7 % (37.5-50.1); Hemoglobin 10.8 g/dL (12.9-16.9); Immature Granulocytes % 0.4 % (0-4); Lymphocytes # 2.2 K/mcL (0.6-4.6); Lymphocytes % 17.4 %; Mean Corpuscular Hemoglobin 28.2 pg (28.0-33.3); Mean Platelet Volume 10.3 fL (9.4-12.4); Monocytes # 1.5 K/mcL (0.0-1.3); Monocytes % 12.3 %; Neutrophils # 8.6 K/mcL (1.6-8.9); Platelet Count 221 K/mcL (140-400); Red Blood Count 3.83 M/mcL (4.19-5.50); Red Cell Distribution Width 12.8 % (11.5-14.5); Segmented Neutrophils % 68.7 %; White Blood Count 12.4 K/mcL (4.3-11.1)
[2022-04-25 06:08] LABS: Alanine Aminotransferase 7 Units/L (7-52); Albumin 3.1 g/dL (3.5-5.7); Albumin/Globulin Ratio 1.1 (1.1-2.2); Alkaline Phosphatase 42 Units/L (34-104); Aspartate Amino Transferase 8 Units/L (13-39); BUN/Creatinine Ratio 16 (6-26); Bilirubin,Total 0.3 mg/dL (0.3-1.0); Blood Urea Nitrogen 20 mg/dL (8-23); Calcium 8.4 mg/dL (8.6-10.3); Carbon Dioxide 26 mEq/L (23-29); Chloride 105 mEq/L (98-107); Globulin 2.8 g/dL (2.4-3.5); Glucose 178 mg/dL (70-105); Osmolality,Calculated 295 (280-300); Sodium 139 mEq/L (136-145); Total Protein 5.9 g/dL (6.4-8.9); eGFR For African Americans > 60 (> 60); eGFR For Non-African Americans 54 (> 60)
[2022-04-25] MEDS: Insulin LISPRO 300 UNITS/3 ML VIAL SUBQ SCH ×4 (08:23→21:43)
[2022-04-25] MEDS: Clindamycin 600 MG/50 ML 600 MG/50 ML IV.SOLN IVPB SCH (08:26)
[2022-04-25] MEDS: lisinopriL 20 MG TABLET PO SCH (08:31)
[2022-04-25] MEDS: Aspirin 81 MG TAB.CHEW PO SCH (08:31)
[2022-04-25] MEDS: Furosemide 20 MG TABLET PO SCH (08:31)
[2022-04-25] MEDS ORDERED: Colchicine 0.6 MG TABLET PO ONE (09:40)
[2022-04-25] MEDS: cefTRIAXone 2,000 MG in 0.9 % Sodium Chloride Mini Bag 100 ML IVPB SCH (10:02)
[2022-04-25] MEDS: allopurinoL 100 MG TABLET PO SCH (13:50)
[2022-04-25] MEDS: Divalproex (12 HR) 500 MG TABLET PO SCH (20:06)
[2022-04-26 02:28] LABS: Calcium 7.9 mg/dL (8.6-10.3); Potassium 4.2 mEq/L (3.5-5.1)
[2022-04-26 07:12] VITALS: BP 158/81; PULSE 71; TEMP 98.5; O2SAT 96
[2022-04-26] MEDS: Insulin LISPRO 300 UNITS/3 ML VIAL SUBQ SCH ×2 (08:42→13:06)
[2022-04-26] MEDS: allopurinoL 100 MG TABLET PO SCH (09:07)
[2022-04-26] MEDS: lisinopriL 20 MG TABLET PO SCH (09:07)
[2022-04-26] MEDS: cefTRIAXone 2,000 MG in 0.9 % Sodium Chloride Mini Bag 100 ML IVPB SCH (09:08)
[2022-04-26] MEDS: Furosemide 20 MG TABLET PO SCH (09:08)
[2022-04-26] MEDS: Aspirin 81 MG TAB.CHEW PO SCH (09:08)
[2022-04-26] MEDS ORDERED: Colchicine 0.6 MG TABLET PO SCH (09:30)
== END 2022-04-26 16:36 | disposition home health service (06) | DRG 606 ==
LOC: EMEROOARM 22:01 → 3BNU 22:01
PROVIDERS: ADMIT Student in an Organized Health Care Education/Training Program; ATTEND Student in an Organized Health Care Education/Training Program